=== PATIENT | female | born 1960 | race Caucasian/White ===

== ENCOUNTER → 2019-03-03 | Outpatient (CLI) | payer MEDICARE ==
--- NOTE | 2019-03-03 11:03 | MR ---
EXAMINATION TYPE: MR cervical spine wo con DATE OF EXAM: 03/03/2019 COMPARISON: 11/03/2015 HISTORY: Other idiopathic scoliosis, cervical region TECHNIQUE: Multiplanar, multisequence images of the cervical spine were acquired. C2-C3: No evidence for degenerative disc disease. No disc bulge/herniation or protrusion. No Canal stenosis. Foramina are patent bilaterally. C3-C4: Degenerative disc disease with uncovertebral joint hypertrophy greater on the right resulting in mild right foraminal encroachment. No canal stenosis or disc herniation. C4-C5: Severe degenerative disc disease with discogenic marrow changes. Facet arthropathy and uncover tebral joint hypertrophy greater on the left resulting in mild right foraminal encroachment and moder ate to severe left foraminal encroachment. Mild Canal stenosis no evidence of disc herniation. C5-C6: Severe degenerative disc disease with disc broad-based protrusion and hypertrophic spondylosis . Facet arthropathy and uncovertebral joint hypertrophy with mild bilateral foraminal encroachment. T here is an anterior compression of the spinal cord due to a disc osteophyte complex with severe canal stenosis. C6-C7: Degenerative disc disease with a broad-based central disc bulging or small protrusion abutting the anterior margin the spinal cord. Uncovertebral joint hypertrophy noted. There is mild central st enosis and moderate right foraminal encroachment. C7-T1: No evidence for degenerative disc disease. No disc bulge/herniation or protrusion. No Canal stenosis. Foramina are patent bilaterally. Cervical segments are intact. There is normal alignment. Axial images are nondiagnostic in assessmen t spinal cord due to artifact. Sagittal images demonstrate no definite abnormal signal.. Cranioverte bral junction relationships are within normal limits. IMPRESSION: 1. Multilevel degenerative disc disease with most marked findings seen at C4-5, C5-6 and C6-C7 with d isc bulging and hypertrophic spurring resulting in a posterior compression of the thecal sac and vary ing degrees of canal stenosis as discussed above. Most marked findings seen at C5-C6. Findings are si milar to the prior exam. 2. Multilevel neural foraminal encroachment.
== END ==
LOC: RADMRIMAIN 09:35
PROVIDERS: ATTEND Physical Medicine & Rehabilitation
DX: M48.02 Spinal stenosis, cervical region (principal); M50.221 Other cervical disc displacement at C4-C5 level; M50.321 Other cervical disc degeneration at C4-C5 level
CPT/HCPCS: 72141

== ENCOUNTER → 2021-12-13 | Outpatient (CLI) | payer MEDICARE ==
--- NOTE | 2021-12-13 08:25 | XR ---
EXAMINATION TYPE: XR chest 2V DATE OF EXAM: 12/13/2021 COMPARISON: 01/16/2015 HISTORY: 61-year-old female J44.9, COPD, ex-smoker. TECHNIQUE: PA and lateral views FINDINGS: The cardiomediastinal silhouette, aorta, and pulmonary vasculature are within normal limits. Lungs an d pleural spaces are clear. There is a severe S-shaped scoliosis of the spine. No silvia consolidation or pleural effusion is seen. IMPRESSION: Severe S-shaped scoliosis. No acute process seen.
[2021-12-13 10:49] LABS: ALT 14 U/L (8-44); AST 18 U/L (13-35); African American GFR (CKD) 72.7 (60.0-200.0); Albumin 4.7 g/dL (3.8-4.9); Albumin/Globulin Ratio 1.96 (1.60-3.17); Alkaline Phosphatase 103 U/L (41-126); BUN/Creat Ratio 19.21 Ratio (12.00-20.00); Blood Urea Nitrogen 18.6 mg/dL (9.0-27.0); C Reactive Protein <0.30 mg/dL (0.00-0.80); Calcium 9.5 mg/dL (8.7-10.3); Carbon Dioxide 25.3 mmol/L (20.0-27.5); Chloride 105 mmol/L (96-109); Creatine Kinase 66 U/L (26-186); Globulin 2.4 g/dL (1.6-3.3); Glucose 110 mg/dL (70-110); Magnesium 2.1 mg/dL (1.5-2.4); Non-African American GFR(CKD) 62.8 (60.0-200.0); Phosphorus 2.8 mg/dL (2.4-5.1); Potassium 4.6 mmol/L (3.5-5.5); Sodium 140 mmol/L (135-145); Total Protein 7.2 g/dL (6.2-8.2)
[2021-12-13 10:55] LABS: Basophils # (A) 0.04 X 10*3/uL (0.00-0.10); Basophils % (A) 0.6 %; Eosinophils # (A) 0.15 X 10*3/uL (0.04-0.35); Eosinophils % (A) 2.4 %; HCT 41.3 % (37.2-46.3); HGB 12.9 g/dL (12.0-15.0); Immature Grans, Automated 0.3 %; Lymphocytes # (A) 1.73 X 10*3/uL (0.90-5.00); Lymphocytes % (A) 27.5 %; MCH 30.4 pg (27.0-32.0); MCHC 31.2 g/dL (32.0-37.0); MCV 97.2 fL (80.0-97.0); Mean Platelet Volume 10.5 fL (9.5-12.2); Monocytes # (A) 0.64 X 10*3/uL (0.20-1.00); Monocytes % (A) 10.2 %; NRBC Per 100 WBC 0.3 /100 WBCS (0.0-0.0); Neutrophils # (A) 3.71 X 10*3/uL (1.80-7.70); Platelet Count 236 X 10*3/uL (140-440); RBC 4.25 X 10*6/uL (4.10-5.20); RDW 13.4 % (11.5-14.5); WBC 6.29 X 10*3/uL (4.50-10.00)
[2021-12-13 11:10] LABS: Hepatitis A Antibody IgM Nonreactive (Nonreactive); Hepatitis B Core IgM Nonreactive (Nonreactive); Hepatitis B Surface Antigen Nonreactive (Nonreactive); Hepatitis C IgG Antibody Nonreactive (Nonreactive)
[2021-12-13 11:14] LABS: Chol/HDL Ratio 3.04 Ratio; LDL Cholesterol,Calculated 128.3 mg/dL (0.0-131.0); VLDL Calculation 13.16 mg/dL (5.00-40.00)
[2021-12-13 11:31] LABS: Appearance,Urine Clear (Clear); Bilirubin,Urine Negative (Negative); Blood,Urine Negative (Negative); Color,Urine Yellow (Yellow); Ketones,Urine Negative (Negative); Nitrite,Urine Negative (Negative); PH, Urine 5.5 (5.0-8.0); Specific Gravity,Urine 1.023 (1.001-1.030); Urobilinogen,Urine 0.2 (0.2,1.0)
[2021-12-13 11:36] LABS: Bacteria,Urine None Seen /HPF (None Seen)
[2021-12-13 13:12] LABS: Erythrocyte Sedimentation Rate 6 mm/Hr (0-30)
== END | disposition home or self-care (01) ==
LOC: RADXRMAIN 07:12
PROVIDERS: ATTEND Internal Medicine
DX: J44.9 Chronic obstructive pulmonary disease, unspecified (principal); D64.9 Anemia, unspecified; I10 Essential (primary) hypertension; N39.0 Urinary tract infection, site not specified; E55.9 Vitamin D deficiency, unspecified; M41.9 Scoliosis, unspecified; R25.1 Tremor, unspecified
CPT/HCPCS: 36415; 71046; 80053; 80061; 80074; 81001; 82306; 82550; 83735; 84100; 84443; 85025; 85652; 86140; 87086

== ENCOUNTER → 2022-01-24 | Outpatient (CLI) | payer OTHER ==
--- NOTE | 2022-01-24 09:32 | MM ---
Reason for Exam: Screening (asymptomatic). Last mammogram was performed 15 year(s) and 8 month(s) ago. Patient History: Menarche at age 13. First Full-Term at age 15. Hysterectomy at age 34. Postmenopausal. Patient has history of breast feeding. 1989, Benign Excisional Biopsy on the right side. Maternal grandmother had breast cancer at or over age 50. Risk Values: Deborah 5 year model risk: 1.2%. NCI Lifetime model risk: 5.4%. Prior Study Comparison: 12/24/1996 Bilateral Special View Mammogram, [facility]. 03/07/1999 Bilateral Diagnostic Mammogram, [facility]. 06/05/2000 Bilateral Diagnostic Mammogram, [facility]. 06/12/2006 Bilateral Screening Mammogram, [facility]. Tissue Density: The breast tissue is heterogeneously dense. This may lower the sensitivity of mammography. Findings: Analyzed By CAD. There is no suspicious group of microcalcifications or new suspicious mass in either breast. Overall Assessment: Negative, BI-RAD 1 Management: Screening Mammogram of both breasts in 1 year. Some advise bilateral breast ultrasound surveillance in patients with background dense tissue. A clinical breast exam by your physician is recommended on an annual basis and results should be correlated with mammographic findings. Electronically signed and approved by: Raúl Mitchell M.D.
== END | disposition home or self-care (01) ==
LOC: RADMAMWWP 07:46
PROVIDERS: ATTEND Internal Medicine
DX: Z12.31 Encounter for screening mammogram for malignant neoplasm of breast (principal); Z78.0 Asymptomatic menopausal state; Z90.710 Acquired absence of both cervix and uterus; Z98.890 Other specified postprocedural states
CPT/HCPCS: 77063; 77067

== ENCOUNTER → 2022-11-21 | Outpatient (CLI) | payer OTHER ==
[2022-11-21 11:00] LABS: Basophils # (A) 0.04 X 10*3/uL (0.00-0.10); Basophils % (A) 0.7 %; Eosinophils # (A) 0.21 X 10*3/uL (0.04-0.35); Eosinophils % (A) 3.5 %; HCT 42.1 % (37.2-46.3); HGB 13.5 d/dL (12.0-15.0); Lymphocytes # (A) 1.83 X 10*3/uL (0.90-5.00); Lymphocytes % (A) 30.6 %; MCH 31.1 pg (27.0-32.0); MCHC 32.1 d/dL (32.0-37.0); Mean Platelet Volume 9.6 FL (9.5-12.2); Monocytes # (A) 0.53 X 10*3/uL (0.20-1.00); Monocytes % (A) 8.9 %; NRBC Per 100 WBC 0 X 10*3/uL (0.00-0.01); Neutrophils # (A) 3.36 X 10*3/uL (1.80-7.70); Neutrophils % (A) 56.1 %; Platelet Count 261 X 10*3/uL (140-440); RBC 4.34 X 10*6/uL (4.10-5.20); WBC 5.98 X 10*3/uL (4.50-10.00)
[2022-11-21 11:19] LABS: % Iron Saturation 26.15 (12.00-45.00); ALT 15 U/L (8-44); AST 16 U/L (13-35); Albumin 4.9 d/dL (3.8-4.9); Albumin/Globulin Ratio 2.13 Ratio (1.60-3.17); Alkaline Phosphatase 88 U/L (41-126); Blood Urea Nitrogen 18.1 mg/dL (9.0-27.0); C Reactive Protein <0.30 mg/dL (0.00-0.80); Calcium 9.8 mg/dL (8.7-10.3); Chloride 102 mmol/L (96-109); Creatine Kinase 101 U/L (26-186); Globulin 2.3 d/dL (1.6-3.3); Glucose 103 mg/dL (70-110); Iron 108 UG/DL (50-170); LDL Cholesterol,Calculated 132.6 mg/dL (0.0-131.0); Magnesium 2.2 mg/dL (1.5-2.4); Phosphorus 3.1 mg/dL (2.4-5.1); Potassium 4.8 mmol/L (3.5-5.5); Sodium 139 mmol/L (135-145); Total Bilirubin 0.4 mg/dL (0.3-1.2); Total Iron Binding Capacity 413 UG/DL (228-460); Total Protein 7.2 d/dL (6.2-8.2); VLDL Calculation 16.62 mg/dL (5.00-40.00)
[2022-11-21 12:06] LABS: Erythrocyte Sedimentation Rate 10 mm/Hr (0-30)
== END | disposition home or self-care (01) ==
LOC: LABWHC1 07:33
PROVIDERS: ATTEND Internal Medicine
DX: Z00.00 Encounter for general adult medical examination without abnormal findings (principal); Z13.88 Encounter for screening for disorder due to exposure to contaminants; E78.5 Hyperlipidemia, unspecified; R25.1 Tremor, unspecified
CPT/HCPCS: 36415; 80053; 80061; 82306; 82550; 82728; 83540; 83550; 83655; 83735; 84100; 84443; 85025; 85652; 86140

== ENCOUNTER → 2023-11-19 | Outpatient (CLI) | payer OTHER ==
--- NOTE | 2023-11-19 08:03 | XR ---
EXAMINATION TYPE: XR chest 2V DATE OF EXAM: 11/19/2023 COMPARISON: 12/13/2021 HISTORY: Shortness of breath TECHNIQUE: Frontal and lateral views of the chest are obtained. FINDINGS: Scattered senescent parenchymal changes noted. Hyperinflation compatible with COPD. No evidence for infiltrate. No evidence for atelectasis. Heart size is stable. Mediastinal structures are stable and grossly unremarkable. No evidence for hilar prominence. Degenerative changes dorsal spine. Severe thoracolumbar scoliosis. IMPRESSION: 1. No evidence for acute pulmonary disease.
== END | disposition home or self-care (01) ==
LOC: LABWHC1 07:34
PROVIDERS: ATTEND Internal Medicine
DX: J44.9 Chronic obstructive pulmonary disease, unspecified (principal); E55.9 Vitamin D deficiency, unspecified; E78.5 Hyperlipidemia, unspecified; R06.02 Shortness of breath
CPT/HCPCS: 36415; 71046; 82306; 83721

== ENCOUNTER → 2024-01-29 | Outpatient (CLI) | payer OTHER ==
[2024-01-29 19:06] LABS: Cardiolipin Ab IgG Interp Negative (Negative); Cardiolipin Ab IgM Interp Negative (Negative); Cardiolipin IgA Antibody <2.0 U/mL; Cardiolipin IgM Antibody 1.5 U/mL
== END | disposition home or self-care (01) ==
LOC: LABWHC1 11:15
PROVIDERS: ATTEND Internal Medicine
DX: I74.9 Embolism and thrombosis of unspecified artery (principal)
CPT/HCPCS: 36415; 86147

== ENCOUNTER → 2024-02-14 | Outpatient (CLI) | payer OTHER ==
[2024-02-14 12:31] LABS: Basophils # (A) 0.04 X 10*3/uL (0.00-0.10); Basophils % (A) 0.6 %; Eosinophils # (A) 0.17 X 10*3/uL (0.04-0.35); Eosinophils % (A) 2.6 %; HCT 41.4 % (37.2-46.3); HGB 13.3 g/dL (12.0-15.0); Lymphocytes # (A) 1.53 X 10*3/uL (0.90-5.00); Lymphocytes % (A) 23.4 %; MCH 30.8 pg (27.0-32.0); MCHC 32.1 g/dL (32.0-37.0); MCV 95.8 FL (80.0-97.0); Mean Platelet Volume 9.3 FL (9.5-12.2); Monocytes # (A) 0.61 X 10*3/uL (0.20-1.00); Monocytes % (A) 9.3 %; NRBC Per 100 WBC 0 X 10*3/uL (0.00-0.01); Neutrophils # (A) 4.18 X 10*3/uL (1.80-7.70); Neutrophils % (A) 63.9 %; Platelet Count 259 X 10*3/uL (140-440); RBC 4.32 X 10*6/uL (4.10-5.20); RDW 13.1 % (11.5-14.5); WBC 6.54 X 10*3/uL (4.50-10.00)
[2024-02-14 12:55] LABS: % Iron Saturation 28.88 (12.00-45.00); C Reactive Protein <0.30 mg/dL (0.00-0.80); Chol/HDL Ratio 2.37 Ratio; Creatine Kinase 69 U/L (26-186); Iron 106 UG/DL (50-170); Magnesium 2.2 mg/dL (1.5-2.4); Phosphorus 2.8 mg/dL (2.4-5.1); Total Iron Binding Capacity 367 UG/DL (228-460); VLDL Calculation 15.48 mg/dL (5.00-40.00)
[2024-02-14 12:56] LABS: ALT 19 U/L (8-44); AST 18 U/L (13-35); Albumin 4.5 g/dL (3.8-4.9); Albumin/Globulin Ratio 1.96 Ratio (1.60-3.17); Alkaline Phosphatase 82 U/L (41-126); Blood Urea Nitrogen 13.9 mg/dL (9.0-27.0); Calcium 9.7 mg/dL (8.7-10.3); Carbon Dioxide 25.5 mmol/L (21.6-31.8); Chloride 106 mmol/L (96-109); Globulin 2.3 g/dL (1.6-3.3); Glucose 106 mg/dL (70-110); LDL Cholesterol,Calculated 76.3 mg/dL (0.0-131.0); Potassium 5.2 mmol/L (3.5-5.5); Sodium 140 mmol/L (135-145); Total Bilirubin 0.4 mg/dL (0.3-1.2); Total Protein 6.8 g/dL (6.2-8.2); Uric Acid 5.6 mg/dL (2.9-7.7)
[2024-02-14 13:30] LABS: Erythrocyte Sedimentation Rate 6 mm/Hr (0-30)
[2024-02-14 13:38] LABS: Appearance,Urine Clear (Clear); Bilirubin,Urine Negative (Negative); Blood,Urine Negative (Negative); Color,Urine Yellow (Yellow); Ketones,Urine Negative (Negative); Nitrite,Urine Negative (Negative); PH, Urine 5.5; Specific Gravity,Urine 1.023 (1.001-1.030); Urobilinogen,Urine 0.2 E.U./DL
[2024-02-14 13:44] LABS: Bacteria,Urine None Seen (None Seen)
[2024-02-14 16:37] LABS: Microalbumin Creatinine Ratio <7 mg/g Cr (0-30)
[2024-02-16 13:23] LABS: DNA Double-Stranded Negative (Negative)
== END | disposition home or self-care (01) ==
LOC: LABWHC1 07:53
PROVIDERS: ATTEND Internal Medicine
DX: Z00.00 Encounter for general adult medical examination without abnormal findings (principal); J44.9 Chronic obstructive pulmonary disease, unspecified; M81.0 Age-related osteoporosis without current pathological fracture; I12.9 Hypertensive chronic kidney disease with stage 1 through stage 4 chronic kidney disease, or unspecified chronic kidney disease; N18.30 Chronic kidney disease, stage 3 unspecified; D63.1 Anemia in chronic kidney disease; E55.9 Vitamin D deficiency, unspecified; M35.9 Systemic involvement of connective tissue, unspecified; R80.9 Proteinuria, unspecified
CPT/HCPCS: 36415; 80053; 80061; 81001; 82043; 82306; 82550; 82570; 82728; 83540; 83550; 83735; 83970; 84100; 84443; 84550; 85025; 85652; 86038; 86140; 86225

== ENCOUNTER → 2024-03-10 | Outpatient (CLI) | payer OTHER ==
[2024-03-10 10:41] LABS: Appearance,Urine Clear (Clear); Bilirubin,Urine Negative (Negative); Blood,Urine Negative (Negative); Color,Urine Yellow (Yellow); Ketones,Urine Negative (Negative); Nitrite,Urine Negative (Negative); Urobilinogen,Urine 0.2 E.U./DL
[2024-03-10 10:47] LABS: Bacteria,Urine None Seen (None Seen)
== END | disposition home or self-care (01) ==
LOC: LABWHC1 07:20
PROVIDERS: ATTEND Internal Medicine
DX: N30.90 Cystitis, unspecified without hematuria (principal)
CPT/HCPCS: 81001; 87086

== ENCOUNTER → 2024-04-08 | Outpatient (CLI) | payer MEDICARE, OTHER ==
--- NOTE | 2024-04-08 08:46 | USB ---
Reason for Exam: Clinical finding. Patient History: Menarche at age 13. First Full-Term at age 15. Hysterectomy at age 34. Postmenopausal. Patient has history of breast feeding. 1989, Benign Excisional Biopsy on the right side. Maternal grandmother had breast cancer, age 60. Risk Values: Deborah 5 year model risk: 1.3%. NCI Lifetime model risk: 5.1%. Technique: Method: Targeted. Prior Study Comparison: 06/12/2006 Bilateral Screening Mammogram, [facility]. 01/24/2022 Bilateral MG 3D screening mammo w/cad, [facility]. 03/06/2023 Bilateral MG 3D screening mammo w/cad, [facility]. Findings: The upper inner quadrant of the right breast, the axilla of the right breast and the retroareolar of the right breast were scanned. No solid or cystic masses are identified. No abnormal to account for pain. Clinical management recommended. Overall Assessment: Negative, BI-RAD 1 Management: Screening Mammogram of both breasts in 1 year. A clinical breast exam by your physician is recommended on an annual basis and results should be correlated with mammographic findings. This exam should not preclude additional follow-up of suspicious palpable abnormalities. Results were given to the patient verbally at the time of exam. [facility], , 04/08/2024 8:44 AM. Electronically signed and approved by: Satnam Morrow D.O. Radiologis
[2024-04-08 16:24] LABS: Calcium 9.7 mg/dL (8.7-10.3); Magnesium 2.1 mg/dL (1.5-2.4)
--- NOTE | 2024-04-09 14:33 | MM ---
Reason for Exam: Clinical finding. Last mammogram was performed 1 year(s) and 1 month(s) ago. Patient History: Menarche at age 13. First Full-Term at age 15. Hysterectomy at age 34. Postmenopausal. Patient has history of breast feeding. 1989, Benign Excisional Biopsy on the right side. Maternal grandmother had breast cancer, age 60. Risk Values: Deborah 5 year model risk: 1.3%. NCI Lifetime model risk: 5.1%. Tissue Density: The breasts are heterogeneously dense, which may obscure small masses. Findings: Analyzed By CAD. The pattern is symmetrical. No significant interval change is evident. No suspicious groups of microcalcifications, spiculated or lobular masses, architectural distortion or other secondary signs of malignancy are mammographically apparent. Overall Assessment: Incomplete: need additional imaging evaluation, BI-RAD 0 Management: Diagnostic Breast Ultrasound of the right breast. A negative mammogram report should not preclude additional follow up of suspicious palpable abnormalities. Patient should continue monthly self breast exam. A clinical breast exam by your physician is recommended on an annual basis and results should be correlated with mammographic findings. Note on Deborah scores and lifetime risk: 1. A Deborah score greater than 3% is considered moderate risk. If this is the case, consider specialist referral to assess eligibility for a risk reducing agent. 2. If overall lifetime risk for the development of breast cancer is 20% or higher, the patient may qualify for future screening with alternating mammogram and breast MRI. [facility], , 04/09/2024 2:00 PM. Electronically signed and approved by: Satnam Morrow D.O. Radiologis
== END | disposition home or self-care (01) ==
LOC: RADMAMWWP 07:59
PROVIDERS: ATTEND Internal Medicine
DX: G25.0 Essential tremor (principal); N60.09 Solitary cyst of unspecified breast; M62.838 Other muscle spasm; G43.109 Migraine with aura, not intractable, without status migrainosus; Z79.899 Other long term (current) drug therapy; Z78.0 Asymptomatic menopausal state; Z80.3 Family history of malignant neoplasm of breast
CPT/HCPCS: 82310; 83735; 82306; 77066; 76642; G0279; 77062

== ENCOUNTER → 2024-04-30 | Outpatient (CLI) | payer MEDICARE ==
--- NOTE | 2024-04-30 17:08 | MR ---
EXAMINATION TYPE: MR brain wo con DATE OF EXAM: 04/30/2024 4:23 PM COMPARISON: None. CLINICAL INDICATION: Female, 63 years old with history of G25.0 ESSENTIAL TREMOR G43.109 MIGRAINE WIT H AURA,; PHH, Migraines, Essential Tremor TECHNIQUE: Multi planar, multi sequence imaging was performed through the brain including: T1, T2, In version recovery, Diffusion weighted imaging, and gradient echo imaging. No gadolinium was given. FINDINGS: Abnormal appearance of the right sanchez radiata with cystic lesion which is high T2 signal measuring 11 x 15 mm with some surrounding high FLAIR signal. No abnormal susceptibility artifact magno und this lesion. The vásquez-white junctions, ventricular system, basal cisterns appear unremarkable. Scattered foci of high T2 signal intensity are seen within the periventricular white matter. Midline structures show n o abnormality. Diffusion-weighted imaging shows no evidence of restricted diffusion. The susceptibili ty weighted images do not reveal any evidence for micro-hemorrhage. The bone marrow signal is within normal limits. Paranasal sinuses and mastoid air cells: No significant paranasal sinus disease. Visualized orbits: Orbital contents are intact. IMPRESSION: 1. Abnormal appearance of the right sanchez radiata with cystic lesion which is high T2 signal measur ing 11 x 15 mm with some surrounding high FLAIR signal. Further evaluation with MRI with IV contrast contrast recommended. Comparison with priors at outside institutions is recommended. Findings could r epresent sequela of prior injury versus prominent perivascular spaces with mass not entirely excluded but felt to be less likely given no significant vasogenic edema. 2. No evidence of intracranial mass or acute/subacute infarct. 3. Nonspecific white matter changes, likely secondary to small vessel ischemic disease. [facility], , 04/30/2024 5:06 PM
== END | disposition home or self-care (01) ==
LOC: RADMRIMAIN 15:27
PROVIDERS: ATTEND Psychiatry & Neurology Neurology
DX: G25.0 Essential tremor (principal); G43.109 Migraine with aura, not intractable, without status migrainosus; R90.82 White matter disease, unspecified; G93.9 Disorder of brain, unspecified
CPT/HCPCS: 70551

== ENCOUNTER → 2024-05-28 | Outpatient (CLI) | payer MEDICARE ==
--- NOTE | 2024-05-28 16:09 | MR ---
EXAMINATION TYPE: MR brain w con DATE OF EXAM: 05/28/2024 12:15 PM COMPARISON: 04/30/2024 CLINICAL INDICATION: Female, 63 years old with history of G25.0 ESSENTIAL TREMOR G43.109 MIGRAINE WIT H AURA,, Essential tremor, migraine, abnormal MRI 04-30-24. TECHNIQUE: Multiplanar, multiecho imaging on a 3.0 Amaya magnet is performed through the brain. Stud y is performed within 24 hours of arrival to the hospital.Multiplanar, multiecho imaging on a 3.0 Marjan la magnet is performed through the knee. IV Contrast: 5 mL Gadobutrol (None, if empty) FINDINGS: The craniovertebral junction is normal. The pituitary is normal. Scattered white matter changes are evident. Ventricles and sulci are appropriate for the patient age. Old lacunar infarct is within right basal ganglia. No abnormal enhancement within the structure or a djacent is evident. Signal adjacent appears within normal limits IMPRESSION: 1. No suspicious enhancement within the brain. 2. Findings in the right basal ganglion likely represent prior lacunar infarct. [facility], , 05/28/2024 4:07 PM
== END | disposition home or self-care (01) ==
LOC: RADMRIMAIN 11:28
PROVIDERS: ATTEND Psychiatry & Neurology Neurology
DX: G25.0 Essential tremor (principal); G43.109 Migraine with aura, not intractable, without status migrainosus; R90.89 Other abnormal findings on diagnostic imaging of central nervous system
CPT/HCPCS: 70552; A9585

== ENCOUNTER → 2024-07-22 | Outpatient (CLI) | payer MEDICARE | END | disposition home or self-care (01) | LOC: LABWHC1 07:30 | PROVIDERS: ATTEND Psychiatry & Neurology Neurology | DX: G43.109 Migraine with aura, not intractable, without status migrainosus (principal); G25.0 Essential tremor | CPT/HCPCS: 36415; 82550 ==